=== PATIENT | male | born 1970 | race African-American/Black ===

== ENCOUNTER 2018-02-11 10:46 | Emergency (ER) | payer OTHER ==
--- NOTE | 2018-02-11 18:47 | RAD ---
LEFT KNEE FOUR VIEWS: 02/11/18 No acute fracture was seen. There does not appear to be a large joint effusion, though it is difficul t to be certain in this patient. Some minor patellofemoral osteophytes are present. There is some cor tical thickening or periosteal reaction in the proximal tibia that does not appear recent. IMPRESSION: No acute bony finding. POS: HOME
== END 2018-02-11 11:35 | disposition home or self-care (01) ==
LOC: BURERS 10:46
DX: S83.92XA Sprain of unspecified site of left knee, initial encounter (principal); I10 Essential (primary) hypertension; X50.1XXA Overexertion from prolonged static or awkward postures, initial encounter

== ENCOUNTER 2018-05-05 09:43 | Emergency (ER) | payer OTHER ==
[2018-05-05] MEDS ORDERED: Hydrochlorothiazide 25 MG TAB ONE (10:35)
[2018-05-05 10:47] LABS: #Basophils 0.1 thou/uL (0.0-0.2); #Eosinphils 0.1 thou/uL (0.0-0.7); #Lymphocytes 2.5 thou/uL (1.20-3.40); #Monocytes 0.9 thou/uL (0.11-0.59); #Neutrophils 7.9 thou/uL (1.40-6.50); %Basophils 1.2 % (0.0-1.0); %Eosinophils 0.7 % (0.0-10.0); %Lymphocytes 21.8 % (21.0-51.0); %Monocytes 7.6 % (0.0-10.0); %Neutrophils 68.8 % (42.0-75.0); Hemoglobin 13.3 g/dL (14.0-18.0); Mean Corpuscular HGB CONC 31.5 g/dL (32.0-36.0); Mean Corpuscular Hemoglobin 26.8 pg (27.0-31.0); Mean Corpuscular Volume 85.1 fL (78.0-98.0); Mean Platelet Volume 7.4 fL (7.4-10.4); Platelet Count 378 thou/uL (130-400); RBC Distribution Width 13.9 % (11.5-14.5); Red Blood Cell (RBC) Count 4.96 mill/uL (4.70-6.10); White Blood Cell (WBC) Count 11.5 thou/uL (4.8-10.8)
[2018-05-05] MEDS ORDERED: Lidocaine 2% PF 5 ML VIAL ONE (11:06)
--- NOTE | 2018-05-05 13:49 | RAD ---
RIGHT ELBOW FOUR VIEWS: Date: 05-05-18 FINDINGS: No acute fracture or joint effusion was seen. There is a sliver of bone projecting from the lateral e picondyle of the distal humerus. It has the appearance of an old injury and may be actually a ligamen tous ossification where the extensor tendons are attached. IMPRESSION: Possible old tendinous injury laterally. No acute bony findings. POS: [facility]
== END 2018-05-05 11:59 | disposition home or self-care (01) ==
LOC: BURERS 09:43
DX: M25.521 Pain in right elbow (principal); I10 Essential (primary) hypertension; E11.9 Type 2 diabetes mellitus without complications; Z79.899 Other long term (current) drug therapy
CPT/HCPCS: 20605; 36415; 84550; 85025; 85652; J2001